=== PATIENT | male | born 1965 | race Caucasian/White ===

== ENCOUNTER → 2019-05-23 | Outpatient (REF) ==
--- NOTE | 2019-05-23 10:57 | Diagnostic Imaging Report ---
INDICATION: Twisting injury to the back. TIME OF EXAM: 10:48 AM 3 views of the lumbar spine were obtained. FINDINGS: Curvature and alignment is within normal limits. Vertebral body heights are maintained. No acute compression fracture is seen. There is mild generalized degenerative disc disease with variable disc space narrowing and marginal spurring. There is some lower lumbar facet arthropathy. IMPRESSION: Lumbar spondylosis. No acute bony abnormality is detected. Dictated by: Dictated on workstation # [id number]
== END | disposition home or self-care (01) ==
LOC: OCC 10:36
PROVIDERS: ATTEND Family Medicine
CPT/HCPCS: 72100